=== PATIENT | male | born 1990 | race Caucasian/White ===

== ENCOUNTER 2017-02-21 14:09 | Emergency (ER) | payer OTHER ==
[2017-02-21] MEDS ORDERED: PROPARACAINE 0.5% OPHTH DROPS 15 ML BTL RIGHT EYE STA (14:38)
--- NOTE | 2017-02-21 14:41 | ED ---
General Adult HPI - General Chief complaint: Eye Problems Stated complaint: Eye Problems/Redness Time Seen by Provider: 02/21/17 14:36 Source: patient, RN notes reviewed Mode of arrival: ambulatory Limitations: no limitations - History of Present Illness Initial comments: 26-year-old male presents emergency department with a chief complaint of right eye irritation. Patient states that he has something in his eye while welding a few days ago and was continued redness and irritation to the eye. He states is is he can feel that there is something in there. 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 Tetanus up-to-date. He denies any other symptoms with this. He states his eye has been more watery than normal. Patient denies any recent fever , chills, shortness of breath, chest pain, back pain, abdominal pain, nausea vomiting, numbness or tingling, dysuria or hematuria, constipation or diarrhea, headaches or visual changes, or any other current symptoms. - Related Data Previous Rx's Medication Instructions Recorded Erythromycin Ophth Oint [Romycin 1 applic RIGHT EYE QID 5 Days gm 02/21/17 Ophth Oint] Allergies Allergy/AdvReac Type Severity Reaction Status Date / Time No Known Allergies Allergy Verified 02/21/17 14:39 Review of Systems ROS Statement: Those systems with pertinent positive or pertinent negative responses have been documented in the HPI. ROS Other: All systems not noted in ROS Statement are negative. Past Medical History Past Medical History: No Reported History History of Any Multi-Drug Resistant Organisms: None Reported Past Surgical History: Adenoidectomy, Tonsillectomy Past Psychological History: No Psychological Hx Reported Smoking Status: Never smoker Past Alcohol Use History: None Reported Past Drug Use History: None Reported General Exam Limitations: no limitations General appearance: alert, in no apparent distress Head exam: Present: atraumatic, normocephalic, normal inspection Eye exam: Present: normal appearance, PERRL, EOMI, other (metalic foreign body right eye). Absent: scleral icterus, conjunctival injection, periorbital swelling ENT exam: Present: normal exam, mucous membranes moist Respiratory exam: Present: normal lung sounds bilaterally. Absent: respiratory distress, wheezes, rales, rhonchi, stridor Cardiovascular Exam: Present: regular rate, normal rhythm, normal heart sounds. Absent: systolic murmur, diastolic murmur, rubs, gallop, clicks Neurological exam: Present: alert, oriented X3 Psychiatric exam: Present: normal affect, normal mood Skin exam: Present: warm, dry, intact, normal color. Absent: rash Course Vital Signs 02/21/17 14:37 Temperature 97.4 F L Pulse Rate 118 H Respiratory 18 Rate Blood Pressure 168/92 O2 Sat by Pulse 97 Oximetry Medical Decision Making - Medical Decision Making 26-year-old male presents to the emergency department with chief complaint of right eye irritation. This tenderness appear to be a right eye foreign body. At this time patient underwent foreign body removal. We did this with an 18- gauge needle. Patient tolerated well. It is. Be a minimal rust string following the procedure. We did start him on eyedrops we discussed follow-up with ophthalmology. We discussed return parameters all questions. Patient family stated the [facility] management this plan. All questions have been answered. They will be discharged. Disposition Clinical Impression: Foreign body of right eye Disposition: HOME SELF-CARE Condition: Stable Instructions: Eye Foreign Body (ED) Additional Instructions: Please use medication as discussed. Please follow up with family doctor if symptoms have not improved over the next two days. Please return to the emergency room if your symptoms increase or worsen or for any other concerns. Prescriptions: Erythromycin Ophth Oint [Romycin Ophth Oint] 1 applic RIGHT EYE QID 5 Days gm Referrals: Earl Oneal MD [STAFF PHYSICIAN] - 1-2 days Time of Disposition: 14:53
[2017-02-21 14:48] VITALS: BP 168/92; PULSE 118; RESP 18; TEMP 97.4
== END 2017-02-21 15:05 | disposition home or self-care (01) ==
LOC: EC 14:09
DX: T15.91XA Foreign body on external eye, part unspecified, right eye, initial encounter (principal); W89.0XXA Exposure to welding light (arc), initial encounter; Y92.69 Other specified industrial and construction area as the place of occurrence of the external cause
CPT/HCPCS: 65205; 99283